=== PATIENT | male | born 1980 ===

== ENCOUNTER 2016-09-24 22:44 | Emergency (ER) | payer SELFPAY ==
[~2016-09-24] VITALS: Ht 170.2 cm; Wt 80.0 kg
[2016-09-24 22:51] VITALS: Ht 170.2 cm; Wt 80.0 kg
== END 2016-09-25 01:14 | disposition left against medical advice (07) ==
LOC: FTE 22:44
DX: Z53.21 Procedure and treatment not carried out due to patient leaving prior to being seen by health care provider (principal)